=== PATIENT | male | born 1995 | race Caucasian/White ===

== ENCOUNTER 2017-10-19 15:37 | Emergency (ER) | payer SELFPAY ==
[~2017-10-19] VITALS: Ht 193 cm; Wt 111.0 kg
[2017-10-19 15:39] VITALS: BP 165/77; PULSE 78; RESP 16; TEMP 99.1; O2SAT 98
[2017-10-19] MEDS ORDERED: TETANUS/DIPHTHERIA TOXOID ADULT 0.5 ML VIAL IM ONE (16:00)
[2017-10-19] MEDS ORDERED: BUPIVACAINE HCL PF 0.5% 10 ML VIAL INFIL ONE (16:00)
[2017-10-19] MEDS ORDERED: LIDOCAINE HCL 1% PF 30 ML VIAL INFIL ONE (16:00)
--- NOTE | 2017-10-19 16:31 | PD ---
HPI Chief Complaint: Laceration/Skin Injury Time Seen by Provider: 15:48 Travel History International Travel<30 days: No Contact w/Intl Traveler<30days: No Traveled to known affect area: No History of Present Illness HPI Patient comes to the emergency department for evaluation of a laceration to his left thumb that occurred approximately an hour half prior to arrival. Patient states he was installing cord on a stove when he accidentally cut himself. Patient reports tetanus shot is not up-to-date. Patient reports rinsing with water and applying pressure and covering with padding and duct tape. Patient finished installing the stove and came to the emergency department. Patient describes a burning-like sensation around the cut without radiation. Denies anything making it better or worse. [facility] Social History Alcohol Use: Yes Tobacco Use: No Substance Use: Yes (MARIJUANA) Allergies-Medications (Allergen,Severity, Reaction): Coded Allergies: No Known Allergies (Unverified , 10/19/17) Reported Meds & Prescriptions Reported Meds & Active Scripts Active No Active Prescriptions or Reported Medications Review of Systems Except as stated in HPI: all other systems reviewed are Neg Physical Exam Narrative GENERAL: Well-developed, overly nourished, in no acute distress, and non-ill appearing. SKIN: Laceration of the dorsal aspect of left thumb proximal phalanx. No foreign body noted. No crepitus. Full range of motion with flexion, extension , abduction, adduction, and opposition. Neurovascularly intact distally. Capillary refill less than 2 seconds. HEAD: Atraumatic. Normocephalic. EYES: Pupils equal and round. EOMI. No scleral icterus. No injection or drainage. ENT: No nasal bleeding or discharge. Mucous membranes pink and moist. NECK: Trachea midline. Supple. No nuclear rigidity. CARDIOVASCULAR: Capillary refill less than 2 seconds. RESPIRATORY: No accessory muscle use. No respiratory distress. MUSCULOSKELETAL: No obvious deformities. No clubbing. No cyanosis. No edema. Full range of motion. NEUROLOGICAL: Awake and alert. No obvious cranial nerve deficits. Motor grossly within normal limits. Normal speech. PSYCHIATRIC: Appropriate mood and affect; insight and judgment normal. Data Data Last Documented VS Vital Signs Date Time Temp Pulse Resp B/P (MAP) Pulse Ox O2 Delivery O2 Flow Rate FiO2 10/19/17 15:39 99.1 78 16 165/77 (106) 98 Orders Orders Bupivacaine Pf 0.5% Inj (Marcaine Pf 0.5 (10/19/17 16:00) Tetanus/Diphtheria Tox Adult (Tetanus/Di (10/19/17 16:00) Lidocaine Pf 1% Inj (Xylocaine-Mpf 1% In (10/19/17 16:00) Ed Discharge Order (10/19/17 16:31) MDM Medical Decision Making Medical Screen Exam Complete: Yes Emergency Medical Condition: Yes Differential Diagnosis Laceration, abrasion, retained foreign body, avulsion Narrative Course The patient suffered laceration to the thumb. There was no evidence to suggest foreign bodies. Visual and tactile exams were unremarkable without evidence of foreign body at this time. There was no evidence of neurovascular injury. The patient had a normal distal vascular exam, and had full normal motor and sensory exams. There was also no evidence or tendon injury, with normal distal full range of motions, flexion, extension, abduction, adduction and opponens. There was no evidence of local joint space involvement at this time. The patient was irrigated with copious sterile normal saline and primary repair was performed. Please see procedure note. The patient was given signs and symptom warnings for infection, such as increasing pain, redness, swelling, associated heat, pus or fever. The patient was warned of possible unseen foreign body and instructed to return immediately if signs or symptoms develop. The patient was given instructions for timely follow up. The patient agreed with plan of care. Patient in no obvious distress upon re-evaluation. Any questions/concerns in reference to patient diagnosis/condition discussed and clarified prior to patient's discharge. Reinforced sheer importance of close follow up with patient 's primary physician or primary care clinic. Instructed patient to return to ED immediately, if symptoms return/worsen. Patient showed understanding of above instructions. Further instructions and recommendations were detailed in discharge paperwork. Patient ambulated without difficulty out of ED at discharge. Procedures Procedure Narrative LACERATION REPAIR LOCATION: Left thumb LENGTH: Approximately 3.5 cm in total length NUMBER OF STITCHES/KELTON: 5 simple interrupted REPAIR: Verbal consent was obtained. The area of the laceration was cleaned and prepped. Digital block was performed using a mixture of lidocaine without epi and Marcaine without epi. The wound was copiously irrigated and explored without evidence of foreign body, bony involvement, ligament injury, tendon injury, or neurovascular injury. The wound was closed using 4-0 Vicryl by medical student Brittany under my supervision. This was a single layer repair. A sterile dressing was applied by nurse. The patient was advised to keep the affected area as clean and dry as possible using soap and water. There were no complications. Patient tolerated the procedure well. Diagnosis Primary Impression: Finger laceration Qualified Codes: S61.012A - Laceration without foreign body of left thumb without damage to nail, initial encounter Referrals: Obey Slater MD [facility] Patient Instructions: Care For Your Absorbable Stitches (ED), Finger Laceration (ED), General Instructions Additional Instructions: Follow-up with your primary care physician and/or hand surgeon this week for reevaluation. Keep wound dry and clean as possible using soap and water. Use Neosporin to promote healing. Do not soak or submerge wound. Return to the emergency department if symptoms get worse. Scripts No Active Prescriptions or Reported Meds Disposition: 01 DISCHARGE HOME Condition: Stable Boris Jacobsen Oct 19, 2017 16:31
== END 2017-10-19 16:36 | disposition home or self-care (01) ==
LOC: PHEFT 15:37
DX: S61.012A Laceration without foreign body of left thumb without damage to nail, initial encounter (principal); W45.8XXA Other foreign body or object entering through skin, initial encounter; F12.90 Cannabis use, unspecified, uncomplicated; Z23 Encounter for immunization
CPT/HCPCS: 12002; 90471; 90714